=== PATIENT | male | born 1985 | race Caucasian/White ===

== ENCOUNTER 2017-12-10 17:50 | Emergency (ER) | payer OTHER ==
[2017-12-10 18:08] VITALS: RESP 16
[2017-12-10] MEDS ORDERED: SODIUM CHLORIDE 0.9% 1,000 ML IV ONE (18:54)
--- NOTE | 2017-12-10 18:58 | ED ---
General Adult HPI - General Source: patient Mode of arrival: ambulatory Limitations: no limitations <Kassidy Greene - Last Filed: 12/11/17 02:46> <Diane Arias - Last Filed: 12/11/17 06:14> - General Chief complaint: Recheck/Abnormal Lab/Rx Stated complaint: med refill/diabetic blurred vision Time Seen by Provider: 12/10/17 18:46 - History of Present Illness Initial comments: 32-year-old male patient with past medical history significant for type 2 diabetes mellitus presents to the emergency department today for evaluation of intermittent blurred vision and polyuria. Patient states he has been having episodes of lightheadedness and swelling in his feet as well. Patient states he has been out of his metformin for the last 3 months due to insurance issues. Patient states he is having the same symptoms as when he found out he had diabetes. Patient states he is also sick with upper respiratory symptoms including nasal congestion, sore throat, and cough. Patient states he is coughing up green sputum. States he occasionally becomes short of breath with this. He denies any fevers, chills, chest pain, hemoptysis, or ear pain. Patient also does not have a blood glucose meter so has not been checking his blood sugar. Patient denies any recent rash, abdominal pain, nausea, vomiting, diarrhea, constipation, back pain, numbness, tingling, dizziness, weakness, hematuria, dysuria, urinary urgency, urinary frequency, headache, visual changes , or any other complaints. (Kassidy Greene) - Related Data Home Medications Medication Instructions Recorded Confirmed diphenhydrAMINE HCL [Benadryl] 25 mg PO HS PRN 12/10/17 12/10/17 Previous Rx's Medication Instructions Recorded metFORMIN HCL [Glucophage] 500 mg PO BID #60 tab 06/11/15 Albuterol Sulfate [Proair Hfa] 1 - 2 puff INHALATION Q6HR PRN #1 12/10/17 inhaler guaiFENesin-DM 600/30MG [Mucinex 1 each PO Q12HR #10 tab.er.12h 12/10/17 Dm] metFORMIN HCL [Glucophage] 500 mg PO BID #60 tab 12/10/17 Allergies Allergy/AdvReac Type Severity Reaction Status Date / Time pseudoephedrine HCl Allergy Unknown Verified 12/10/17 18:50 [From [facility]] Childhood Review of Systems ROS Other: All systems not noted in ROS Statement are negative. <Kassidy Greene - Last Filed: 12/11/17 02:46> ROS Other: All systems not noted in ROS Statement are negative. <AriasDiane P - Last Filed: 12/11/17 06:14> ROS Statement: Those systems with pertinent positive or pertinent negative responses have been documented in the HPI. Past Medical History Past Medical History: Diabetes Mellitus, Hyperlipidemia History of Any Multi-Drug Resistant Organisms: None Reported Past Surgical History: No Surgical Hx Reported Past Psychological History: ADD/ADHD, Anxiety, Depression Smoking Status: Current every day smoker Past Alcohol Use History: None Reported Past Drug Use History: None Reported <Kassidy Greene - Last Filed: 12/11/17 02:46> General Exam Limitations: no limitations General appearance: alert, in no apparent distress, other (This is a well- developed, well-nourished adult male patient in no acute distress. Vital signs upon presentation are temperature 98.2F, pulse 96, respirations 16, blood pressure 119/74, pulse ox 99% on room air.) Eye exam: Present: normal appearance, PERRL, EOMI. Absent: scleral icterus, conjunctival injection, periorbital swelling ENT exam: Present: normal exam, normal oropharynx, mucous membranes moist Respiratory exam: Present: normal lung sounds bilaterally. Absent: respiratory distress, wheezes, rales, rhonchi, stridor Cardiovascular Exam: Present: regular rate, normal rhythm, normal heart sounds. Absent: systolic murmur, diastolic murmur, rubs, gallop, clicks Neurological exam: Present: alert, oriented X3, CN II-XII intact Psychiatric exam: Present: normal affect, normal mood Skin exam: Present: warm, dry, intact, normal color. Absent: rash <Kassidy Greene - Last Filed: 12/11/17 02:46> Vital Signs 12/10/17 12/10/17 18:05 21:27 Temperature 98.2 F 98.5 F Pulse Rate 96 78 Respiratory 16 16 Rate Blood Pressure 119/74 143/69 O2 Sat by Pulse 99 98 Oximetry Medical Decision Making - Lab Data Result diagrams: 12/10/17 19:21 12/10/17 19:21 - Radiology Data Radiology results: report reviewed, image reviewed <Kassidy Greene - Last Filed: 12/11/17 02:46> - Lab Data Result diagrams: 12/10/17 19:21 12/10/17 19:21 <Diane Arias - Last Filed: 12/11/17 06:14> - Medical Decision Making 32-year-old male patient presents to the emergency department today for complaints of blurred vision and polyuria. Patient reported history of type 2 diabetes with noncompliance over the last 3 months. Patient is also dispensing upper respiratory symptoms. Physical examination is relatively unremarkable visual acuity was performed and vision was 20/20 in both eyes. Blood sugar was 228 here in the department. Chest x-ray showed no acute cardiopulmonary process. Other labs are unremarkable. I did discuss findings and results with patient. Did discuss his symptoms are most likely related to viral upper respiratory prescription for Mucinex D and his refill his prescription for metformin. Patient very upset and a visit yelling how he did not help him or care for him. He is requesting a antibiotic, I did tell him that this was not necessary as his symptoms are most likely viral in nature. He is instructed to follow-up with his primary care physician for recheck as soon as possible. Return parameters discussed in detail. He verbalizes understanding. (Kassidy Greene) I was available for consultation in the emergency department. The history and physical exam were done by the midlevel provider. I was consulted for this patient's care. I reviewed the case with the midlevel provider and based on their presentation of the patient, I agree with the assessment, medical decision making and plan of care as documented. (Diane Arias) - Lab Data Lab Results 12/10/17 12/10/17 12/10/17 Range/Units 19:21 19:21 19:21 WBC 11.5 H (3.8-10.6) k/uL RBC 4.85 (4.30-5.90) m/uL Hgb 14.1 (13.0-17.5) gm/dL Hct 42.1 (39.0-53.0) % MCV 86.8 (80.0-100.0) fL MCH 29.0 (25.0-35.0) pg MCHC 33.4 (31.0-37.0) g/dL RDW 13.8 (11.5-15.5) % Plt Count 270 (150-450) k/uL Neutrophils % 62 % Lymphocytes % 29 % Monocytes % 4 % Eosinophils % 4 % Basophils % 1 % Neutrophils # 7.1 (1.3-7.7) k/uL Lymphocytes # 3.3 (1.0-4.8) k/uL Monocytes # 0.5 (0-1.0) k/uL Eosinophils # 0.4 (0-0.7) k/uL Basophils # 0.1 (0-0.2) k/uL Sodium 139 (137-145) mmol/L Potassium 3.7 (3.5-5.1) mmol/L Chloride 102 (98-107) mmol/L Carbon Dioxide 27 (22-30) mmol/L Anion Gap 10 mmol/L BUN 7 L (9-20) mg/dL Creatinine 0.77 (0.66-1.25) mg/dL Est GFR (CKD-EPI)AfAm >90 (>60 ml/min/1.73 sqM) Est GFR (CKD-EPI)NonAf >90 (>60 ml/min/1.73 sqM) Glucose 218 H (74-99) mg/dL POC Glucose (mg/dL) (75-99) mg/dL POC Glu Insole Taper ID Calcium 9.5 (8.4-10.2) mg/dL Total Bilirubin 0.4 (0.2-1.3) mg/dL AST 17 (17-59) U/L ALT 19 L (21-72) U/L Alkaline Phosphatase 74 (38-126) U/L Total Protein 6.8 (6.3-8.2) g/dL Albumin 4.1 (3.5-5.0) g/dL Urine Color Yellow Urine Appearance Clear (Clear) Urine pH 6.0 (5.0-8.0) Ur Specific [place] 1.018 (1.001-1.035) Urine Protein Trace H (Negative) Urine Glucose (UA) 2+ H (Negative) Urine Ketones Negative (Negative) Urine Blood Negative (Negative) Urine Nitrite Negative (Negative) Urine Bilirubin Negative (Negative) Urine Urobilinogen 2.0 (<2.0) mg/dL Ur Leukocyte Esterase Moderate H (Negative) Urine RBC <1 (0-5) /hpf Urine WBC <1 (0-5) /hpf Urine Mucus Rare H (None) /hpf Acetone, Qual Negative (Negative) 12/10/17 Range/Units 19:30 WBC (3.8-10.6) k/uL RBC (4.30-5.90) m/uL Hgb (13.0-17.5) gm/dL Hct (39.0-53.0) % MCV (80.0-100.0) fL MCH (25.0-35.0) pg MCHC (31.0-37.0) g/dL RDW (11.5-15.5) % Plt Count (150-450) k/uL Neutrophils % % Lymphocytes % % Monocytes % % Eosinophils % % Basophils % % Neutrophils # (1.3-7.7) k/uL Lymphocytes # (1.0-4.8) k/uL Monocytes # (0-1.0) k/uL Eosinophils # (0-0.7) k/uL Basophils # (0-0.2) k/uL Sodium (137-145) mmol/L Potassium (3.5-5.1) mmol/L Chloride (98-107) mmol/L Carbon Dioxide (22-30) mmol/L Anion Gap mmol/L BUN (9-20) mg/dL Creatinine (0.66-1.25) mg/dL Est GFR (CKD-EPI)AfAm (>60 ml/min/1.73 sqM) Est GFR (CKD-EPI)NonAf (>60 ml/min/1.73 sqM) Glucose (74-99) mg/dL POC Glucose (mg/dL) 228 H (75-99) mg/dL POC Glu Insole Taper ID Christine Amezquita Calcium (8.4-10.2) mg/dL Total Bilirubin (0.2-1.3) mg/dL AST (17-59) U/L ALT (21-72) U/L Alkaline Phosphatase (38-126) U/L Total Protein (6.3-8.2) g/dL Albumin (3.5-5.0) g/dL Urine Color Urine Appearance (Clear) Urine pH (5.0-8.0) Ur Specific [place] (1.001-1.035) Urine Protein (Negative) Urine Glucose (UA) (Negative) Urine Ketones (Negative) Urine Blood (Negative) Urine Nitrite (Negative) Urine Bilirubin (Negative) Urine Urobilinogen (<2.0) mg/dL Ur Leukocyte Esterase (Negative) Urine RBC (0-5) /hpf Urine WBC (0-5) /hpf Urine Mucus (None) /hpf Acetone, Qual (Negative) - Radiology Data Two-view x-ray of the chest is obtained. Report reviewed in its entirety. Impression by Dr. Faisal Santacruz shows no acute process. (Kassidy Greene) Disposition Is patient prescribed a controlled substance at d/c from ED?: No Time of Disposition: 21:18 <Kassidy Greene - Last Filed: 12/11/17 02:46> <Diane Arias - Last Filed: 12/11/17 06:14> Clinical Impression: Acute bronchitis, Noncompliance with diabetes treatment, Hyperglycemia Disposition: HOME SELF-CARE Condition: Good Instructions: Acute Bronchitis (ED), Diabetic Hyperglycemia (ED) Additional Instructions: Take medications as directed. Increase fluids. Follow up with the primary care physician for recheck in 1-2 days. Return here immediately for any new, worsening, or concerning symptoms. Prescriptions: Albuterol Sulfate [Proair Hfa] 1 - 2 puff INHALATION Q6HR PRN #1 inhaler PRN Reason: Shortness Of Breath guaiFENesin-DM 600/30MG [Mucinex Dm] 1 each PO Q12HR #10 tab.er.12h metFORMIN HCL [Glucophage] 500 mg PO BID #60 tab Referrals: Maria E Carson MD [REFERRING] - 1-2 days
[2017-12-10 19:35] LABS: Appearance,Urine Clear (Clear); Basophils # (A) 0.1 k/uL (0-0.2); Basophils % (A) 1 %; Bilirubin,Urine Negative (Negative); Blood,Urine Negative (Negative); Color,Urine Yellow; Eosinophils # (A) 0.4 k/uL (0-0.7); Eosinophils % (A) 4 %; Glucose,Urine (UA) 2+ (Negative); HCT 42.1 % (39.0-53.0); HGB 14.1 gm/dL (13.0-17.5); Ketones,Urine Negative (Negative); Leukocyte Esterase,Urine Moderate (Negative); Lymphocytes # (A) 3.3 k/uL (1.0-4.8); Lymphocytes % (A) 29 %; MCHC 33.4 g/dL (31.0-37.0); MCV 86.8 fL (80.0-100.0); Mean Platelet Volume 6.9; Monocytes # (A) 0.5 k/uL (0-1.0); Monocytes % (A) 4 %; Mucus,Urine Rare /hpf; Neutrophils # (A) 7.1 k/uL (1.3-7.7); Neutrophils % (A) 62 %; Nitrite,Urine Negative (Negative); Platelet Count 270 k/uL (150-450); Protein,Urine Trace (Negative); RBC 4.85 m/uL (4.30-5.90); RBC,Urine <1 /hpf (0-5); RDW 13.8 % (11.5-15.5); Specific Gravity,Urine 1.018 (1.001-1.035); WBC 11.5 k/uL (3.8-10.6); WBC,Urine <1 /hpf (0-5)
[2017-12-10 19:45] LABS: ALT 19 U/L (21-72); AST 17 U/L (17-59); Albumin 4.1 g/dL (3.5-5.0); Alkaline Phosphatase 74 U/L (38-126); Anion Gap 10 mmol/L; Blood Urea Nitrogen 7 mg/dL (9-20); Calcium 9.5 mg/dL (8.4-10.2); Carbon Dioxide 27 mmol/L (22-30); Chloride 102 mmol/L (98-107); Glucose 218 mg/dL (74-99); Potassium 3.7 mmol/L (3.5-5.1); Sodium 139 mmol/L (137-145); Total Bilirubin 0.4 mg/dL (0.2-1.3); Total Protein 6.8 g/dL (6.3-8.2)
[2017-12-10 20:00] LABS: Glucose,Whole Blood 228 mg/dL (75-99)
[2017-12-10] MEDS ORDERED: guaiFENesin-DM 600/30MG 1 EACH TAB.ER.12H PO STA (20:28)
--- NOTE | 2017-12-10 21:07 | XR ---
EXAMINATION: XR chest 2V DATE AND TIME: 12/10/2017 9:02 PM CLINICAL INDICATION: Pain TECHNIQUE: PA and lateral COMPARISON: None. FINDINGS: The lungs are clear. The pleural spaces are negative. The cardiac silhouette is not enlarged. The remainder of the mediastinal silhouette is unremarkable. The skeletal structures and soft tissues are negative for acute findings. IMPRESSION: NO ACUTE PROCESS.
[2017-12-10 21:28] VITALS: BP 143/69; PULSE 78; TEMP 98.5
== END 2017-12-10 21:31 | disposition home or self-care (01) ==
LOC: EC 17:50
DX: J20.9 Acute bronchitis, unspecified (principal); E11.65 Type 2 diabetes mellitus with hyperglycemia; Z91.14 Patient's other noncompliance with medication regimen; Z76.0 Encounter for issue of repeat prescription; F17.200 Nicotine dependence, unspecified, uncomplicated; Z88.8 Allergy status to other drugs, medicaments and biological substances
CPT/HCPCS: 36415; 71046; 80053; 81001; 82009; 85025; 96360; 99284

== ENCOUNTER → 2021-03-31 | Outpatient (CLI) | payer OTHER ==
--- NOTE | 2021-03-31 13:40 | XR ---
Soft tissue neck HISTORY: Suicide attempt, neck pain 2 views of the neck Correlation to cervical spine exam 03/31/2021 Airway is patent. No radio opaque foreign body. Epiglottis is unremarkable. The profile. Bone mineral ization is maintained. IMPRESSION: No acute abnormality
--- NOTE | 2021-03-31 13:41 | XR ---
Cervical spine HISTORY: Suicide attempt 03/29/2021, pain 6 views of the cervical spine Rudimentary cervical ribs are present. Thoracic spine shows a probable curvature. Cervical vertebral bodies show preserved height, alignment, and bone mineralization. No evident foraminal encroachment o n oblique views. Disc spaces and prevertebral soft tissues are normal. IMPRESSION: No fracture or subluxation.
== END | disposition home or self-care (01) ==
LOC: RADXRMAIN 12:30
DX: T14.91XA Suicide attempt, initial encounter (principal); M54.2 Cervicalgia; X58.XXXA Exposure to other specified factors, initial encounter
CPT/HCPCS: 70360; 72050